=== PATIENT | male | born 1985 | race Caucasian/White ===

== ENCOUNTER 2017-03-12 16:20 | Emergency (ER) | payer SELFPAY ==
[~2017-03-12 16:20] MED LIST: DOXY100T PO; MACR100C PO; SULF1TAB47 PO; Z.0.NO CURRENT MEDS
[2017-03-12 16:22] VITALS: BP 124/63; PULSE 73; RESP 16; TEMP 98.7; O2SAT 100
[2017-03-12 17:18] LABS: BILIRUBIN, URINE NEG (NEG); BLOOD, URINE NEG (NEG); GLUCOSE,URINE NEG (NEG); KETONE, URINE NEG (NEG); MUCUS URINE FEW /lpf (OCC); NITRITE,URINE NEG (NEG); PH, URINE 6.5 (5.0-8.5); URINE COLOR YELLOW (YELLW/STRAW); URINE LEUKOCYTE ESTERASE NEG (NEG)
--- NOTE | 2017-03-12 17:36 | PD ---
HPI Chief Complaint: Flank/Kidney Pain Time Seen by Provider: 17:24 Travel History International Travel<30 days: No Contact w/Intl Traveler<30days: No Traveled to known affect area: No History of Present Illness HPI 31-year-old man who presents to the emergency department complaining of gums receding sore throat right flank pain. He is worried he may have chlamydia. He states he had similar symptoms when he had chlamydia in the past. He essentially active multiple female sexual partners with a new partner recently. No symptoms that he knows of. No penile discharge. A little bit of irritation in his testicles. He otherwise has been feeling well. History Past Medical History Medical History: Denies Significant Hx Social History Alcohol Use: No Tobacco Use: Yes (1 PPD) Allergies-Medications (Allergen,Severity, Reaction): Uncoded Allergies: NARCOTICS (Allergy, Mild, 07/01/10) Reported Meds & Prescriptions Reported Meds & Active Scripts Active Macrobid (Nitrofurantoin Macrocrystals) 100 Mg Cap 100 Mg PO BID Doxycycline Hyclate 100 Mg Tab 100 Mg PO BID Bactrim Ds (Trimethoprim/Sulfamethoxazole) Tab 1 Tab PO BID Reported No Current Meds (Miscellaneous Medication) Misc Review of Systems Except as stated in HPI: all other systems reviewed are Neg Physical Exam Narrative GENERAL: Well-appearing 31-year-old man, no acute distress. SKIN: Focused skin assessment warm/dry. HEAD: Atraumatic. Normocephalic. EYES: Pupils equal and round. No scleral icterus. No injection or drainage. ENT: No nasal bleeding or discharge. Mucous membranes pink and moist. Throat is normal. NECK: Trachea midline. No significant adenopathy. CARDIOVASCULAR: Regular rate and rhythm. No murmur appreciated. RESPIRATORY: No accessory muscle use. Clear to auscultation. Breath sounds equal bilaterally. GASTROINTESTINAL: Abdomen soft, non-tender, nondistended. Hepatic and splenic margins not palpable. MUSCULOSKELETAL: No obvious deformities. : Normal external male genitalia. Circumcised. No significant testicular swelling tenderness redness or discharge. Data Data Last Documented VS Vital Signs Date Time Temp Pulse Resp B/P (MAP) Pulse Ox O2 Delivery O2 Flow Rate FiO2 03/12/17 16:22 98.7 73 16 124/63 (83) 100 Orders Orders Urinalysis - C+S If Indicated (03/12/17 16:44) Labs Laboratory Tests Test 03/12/17 16:40 Urine Color YELLOW Urine Turbidity CLEAR Urine pH 6.5 Urine Specific [facility] 1.025 Urine Protein NEG mg/dL Urine Glucose (UA) NEG mg/dL Urine Ketones NEG mg/dL Urine Occult Blood NEG Urine Nitrite NEG Urine Bilirubin NEG Urine Urobilinogen LESS THAN 2.0 MG/DL Urine Leukocyte Esterase NEG Urine RBC LESS THAN 1 /hpf Urine Mucus FEW /lpf Microscopic Urinalysis Comment CULT NOT INDICATED MDM Medical Decision Making Medical Screen Exam Complete: Yes Emergency Medical Condition: Yes Interpretation(s) UA is unremarkable. Differential Diagnosis Viral syndrome, anxiety, gingivitis, STD, other Narrative Course Medical decision making 31-year-old man who presents essentially is worried he may contracted an STD. He has no significant STD symptoms. The normal penile exam. His urine is normal. Wide GC quality onto his urine. He is worried about his receding gums. He drinks sugary drinks throughout the day. Accompanied not to drink sugared drinks throughout the day. Diagnosis Primary Impression: Flank pain Additional Instructions: Take measures to prevent sexually transmitted infection. Follow-up with the dentist. Return to the emergency department for any new or worsening symptoms. Med/Other Pt SpecificInfo: No Change to Meds Disposition: 01 DISCHARGE HOME Condition: John Michael MD Mar 12, 2017 17:36
== END 2017-03-12 18:05 | disposition home or self-care (01) ==
LOC: NEPD 16:20
DX: R10.9 Unspecified abdominal pain (principal); J02.9 Acute pharyngitis, unspecified; F17.200 Nicotine dependence, unspecified, uncomplicated
CPT/HCPCS: 81001; 87491; 87591; 99283

== ENCOUNTER 2017-07-12 19:07 | Emergency (ER) | payer SELFPAY ==
[~2017-07-12] VITALS: Ht 170.2 cm; Wt 72.7 kg
[2017-07-12 19:09] VITALS: BP 136/82; PULSE 77; RESP 16; TEMP 99; O2SAT 100
--- NOTE | 2017-07-12 19:21 | PD ---
HPI Chief Complaint: Injury Time Seen by Provider: 19:18 Travel History International Travel<30 days: No Contact w/Intl Traveler<30days: No Traveled to known affect area: No History of Present Illness HPI 31-year-old male here for evaluation of right wrist pain. He reports that he fell on his outstretched hand while playing hockey 3 days ago. Since then he has had pain to the right wrist, aching, worse with movement. Denies any other injuries and he has no other complaints at this time. PFSH Past Medical History Arthritis: No Asthma: No Blood Disorders: No Anxiety: Yes Depression: Yes Heart Rhythm Problems: No Cancer: No Cardiovascular Problems: Yes (WAS ON A BETA KAYLEE) High Cholesterol: No Chest Pain: No Congestive Heart Failure: No COPD: No Cerebrovascular Accident: No Diminished Hearing: No Endocrine: No GERD: No Genitourinary: No Headaches: Yes Hepatitis: No Hiatal Hernia: No Hypertension: No Immune Disorder: No Kidney Stones: No Musculoskeletal: No Neurologic: Yes Psychiatric: Yes Reproductive: No Respiratory: No Migraines: No Myocardial Infarction: No Radiation Therapy: No Renal Failure: No Seizures: No Sleep Apnea: No Ulcer: No Past Surgical History Abdominal Surgery: Yes (HERNIA REPAIR) AICD: No Appendectomy: No Arteriovenous Shunt: No Cardiac Surgery: No Cholecystectomy: No Ear Surgery: No Endocrine Surgery: No Eye Surgery: No Gynecologic Surgery: No Insulin Pump: No Joint Replacement: No Oral Surgery: No Pacemaker: No Thoracic Surgery: No Other Surgery: Yes (HERNIA SURGERY 2001 AND 2004) Social History Alcohol Use: No Tobacco Use: Yes (1 PPD) Substance Use: No Allergies-Medications (Allergen,Severity, Reaction): Uncoded Allergies: NARCOTICS (Allergy, Mild, 07/01/10) Reported Meds & Prescriptions Reported Meds & Active Scripts Active Macrobid (Nitrofurantoin Macrocrystals) 100 Mg Cap 100 Mg PO BID Doxycycline Hyclate 100 Mg Tab 100 Mg PO BID Bactrim Ds (Trimethoprim/Sulfamethoxazole) Tab 1 Tab PO BID Reported No Current Meds (Miscellaneous Medication) Misc Review of Systems Musculoskeletal: Positive: Pain Skin: Positive Other (positive for bruising) Physical Exam Narrative GENERAL: Well-nourished male in no acute distress SKIN: Warm and dry. Some bruising noted to the right wrist. MUSCULOSKELETAL: Generalized tenderness to palpation of the right wrist. There is pain with range of motion activities of the right wrist. Capillary refill less than 2 seconds all digits right hand. 2+ radial pulse. Data Data Last Documented VS Vital Signs Date Time Temp Pulse Resp B/P (MAP) Pulse Ox O2 Delivery O2 Flow Rate FiO2 07/12/17 19:09 99.0 77 16 136/82 (100) 100 Orders Orders Wrist, Complete ([id number]) (07/12/17 ) Ice/Cold Pack (07/12/17 19:19) Splint Or Brace Apply/Monitor (07/12/17 20:21) Mandatory Outpatient Referral (07/12/17 20:21) Ed Discharge Order (07/12/17 20:24) MDM Medical Decision Making Medical Screen Exam Complete: Yes Emergency Medical Condition: Yes Medical Record Reviewed: Yes Differential Diagnosis Sprain, fracture, dislocation, contusion Narrative Course X-ray imaging of the right wrist will be obtained. X-ray imaging reveals no acute abnormalities. His pain is primarily localized to the right anatomical snuffbox concerning for an occult scaphoid fracture. Therefore a thumb spica splint will be applied and he will be referred for hand surgery follow-up. Mandatory outpatient referral has been placed. He is stable for discharge. Diagnosis Primary Impression: Right wrist pain Referrals: Hand Surgeon Additional Instructions: Do not remove the splint. Tylenol or Motrin for pain. Ice pack several times a day 20 minutes at a time. Follow-up with a hand specialist in the next 1-2 weeks. Our case management assistant will be calling at some point to help facilitate. Return for any emergent medical conditions. Med/Other Pt SpecificInfo: Orthopedic Instructions Disposition: 01 DISCHARGE HOME Condition: Stable James Metzger Jul 12, 2017 19:20
--- NOTE | 2017-07-12 20:18 | RADRPT ---
EXAM DATE/TIME: 07/12/2017 19:28 [facility] COMPARISON: No previous studies available for comparison. INDICATIONS : Wrist pain from hockey injury. MEDICAL HISTORY : None. SURGICAL HISTORY : None. ENCOUNTER: Initial ACUITY: 1 day PAIN SCORE: 8/10 LOCATION: Right wrist FINDINGS: Three view examination of the right wrist demonstrates no soft tissue swelling, dislocation, or fract ure. The carpal bones are in normal alignment. The joint spaces are maintained. Bony mineralizatio n is normal. CONCLUSION: 1. No acute fracture or dislocation. Nahum Leary MD on July 12, 2017 at 20:16 Board Certified Radiologist. This report was verified electronically.
== END 2017-07-12 20:47 | disposition home or self-care (01) ==
LOC: NEPK 19:07
DX: M25.531 Pain in right wrist (principal); F17.200 Nicotine dependence, unspecified, uncomplicated
CPT/HCPCS: 73110; 99283; L3808